=== PATIENT | male | born 1980 | race Hispanic/Latino ===

== ENCOUNTER 2017-12-26 20:49 | Emergency (ER) | payer OTHER ==
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
== END 2017-12-27 00:01 | disposition home or self-care (01) ==
LOC: ER 20:49
DX: M54.10 Radiculopathy, site unspecified (principal); M25.531 Pain in right wrist; M79.601 Pain in right arm; V89.2XXA Person injured in unspecified motor-vehicle accident, traffic, initial encounter; F32.9 Major depressive disorder, single episode, unspecified
CPT/HCPCS: 72040; 99283

== ENCOUNTER 2020-09-26 12:41 | Emergency (ER) | payer OTHER ==
--- OUTSIDE RECORDS SUMMARY | 2020-09-26 12:43 | XMS REPORT | Continuity of Care Document ---
:1980 Author Organization [facility] t Address [address] [place] [address] Care Team Providers Name Role Phone Ann VASQUEZ, Timmy Attending Clinician Unavailable Zoila Charles Attending Clinician Concetta COELLO Attending Clinician Pau Brown MD Attending Clinician Ascencion Shafer DO Attending Clinician Doctor Unassigned, Name Attending Clinician Unavailable Pau Brown MD Admitting Clinician Problems This patient has no known problems. Allergies, Adverse Reactions, Alerts This patient has no known allergies or adverse reactions. Medications This patient has no known medications. Procedures This patient has no known procedures. Encounters Start End Encounter Admission Attending Care Care Encounter Source Date/Time Date/Time Type Type Clinicians Facility Department ID 2020-05-18 2020-05-18 Transition Dalila Juarez [id number] 00:00:00 00:00:00 of Care Bethel Roca [id number] [place] [id number] 2020-05-02 2020-05-15 [facility] Xavi Juares [id number] 16:54:00 17:00:00 Encounter Amanda Hylton [id number] Darius BrownSimón [facility] [id number] Edwin Castillo [id number] 2020-05-02 2020-05-02 Orders Doctor RICCARDO [id number] 00:00:00 00:00:00 Only Unassigned, JOYCE [id number] [place] [facility] [id number] Results This patient has no known results.
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
[2020-09-26] MEDS ORDERED: HYDROCODONE/APAP 7.5/325 MG TAB ONE (13:39)
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
[2020-09-28 17:31] VITALS: BP 139/97; TEMP 96.6; O2SAT 97
== END 2020-09-26 14:03 | disposition home or self-care (01) ==
LOC: ER 12:41
DX: M54.5 Low back pain (principal); V49.40XA Driver injured in collision with unspecified motor vehicles in traffic accident, initial encounter; F17.220 Nicotine dependence, chewing tobacco, uncomplicated
CPT/HCPCS: 70450; 72125; 72131; 99284